=== PATIENT | female | born 1945 | race Caucasian/White ===

== ENCOUNTER 2017-01-06 01:43 | Emergency (ER) | payer MEDICARE, OTHER ==
--- NOTE | ~2017-01-06 | EKG ---
PATIENT: JOSE BROWN UNIT #: [id number] Ventricular Rate: 67 BPM Atrial Rate: 67 BPM P-R Interval: 182 ms QRS Duration: 86 ms Q-T Interval: 420 ms QTC Calculation(Bezet): 443 ms P [place]: 33 degrees Calculated R [place]: -20 degrees Calculated T [place]: 31 degrees Diagnosis Line: Normal sinus rhythm Diagnosis Line: Normal ECG Diagnosis Line: When compared with ECG of 27-JUL-2011 03:24, Diagnosis Line: No significant change was found Diagnosis Line: Confirmed by ASHLEY MEDINA MD ([id number]) on Diagnosis Line: 01/06/2017 3:24:44 PM INTERPRETING MD: CAROL ALEMAN
[~2017-01-06 01:43] MED LIST: ASPIRIN PO; CRESTOR PO; FENOGLIDE120 MG PO; LEVAQUIN250 MG PO; PREMARIN PO; PRILOSEC PO; PRILOSEC20 MG PO; TRICOR PO; TRICOR145 MG PO; ZANTAC PO
[2017-01-06 02:19] LABS: URINE SOURCE CLEAN CATCH
[2017-01-06 02:21] LABS: MICRO INDICATED? NO; URINE APPEARANCE CLEAR; URINE BILIRUBIN NEG (NEG); URINE BLOOD NEG (NEG); URINE COLOR YELLOW; URINE GLUCOSE NEG (NORM); URINE KETONE NEG (NEG); URINE LEUKOCYTE ESTERASE NEG (NEG); URINE NITRATE NEG (NEG); URINE PH 5.5 (5-8); URINE PROTEIN NEG (NEG); URINE UROBILINOGEN 0.2 MG/DL (NORM)
[2017-01-06 02:23] LABS: BASOPHIL# 0.1 X10e3 (0-0.3); BASOPHIL% 1.2 % (0-2.5); EOSINOPHIL# 0.3 X10e3 (0-0.7); EOSINOPHIL% 5.7 % (0.0-7.0); HEMATOCRIT 37.2 % (35.0-45.0); HEMOGLOBIN 12.4 gm/dL (12.0-16.0); LYMPHOCYTE# 3.1 X10e3 (1.0-3.5); LYMPHOCYTE% 53.8 % (17.0-45.0); MEAN CELL VOLUME 87.7 FL (83-96); MEAN CORPUSCULAR HEMOGLOBIN 29.4 PG (28-34); MEAN CORPUSCULAR HGB CONC 33.5 g/dL (30-36); MEAN PLATELET VOLUME 8.6 FL (6.5-11.5); MONOCYTE# 0.4 X10e3 (0-1.0); MONOCYTE% 7.8 % (3.0-12.0); NEUTROPHIL# 1.8 X10e3 (1.5-7.1); NEUTROPHIL% 31.5 % (40-75); PLATELET COUNT 231 X10e3 (140-420); RED BLOOD COUNT 4.24 X10e (3.90-5.30); WHITE BLOOD COUNT 5.7 X10e3 (4.0-10.5)
[2017-01-06 02:24] LABS: DIFF IND NO
[2017-01-06 02:32] LABS: BUN/CREATININE RATIO 24.44; CALCIUM SERUM 9.5 mg/dL (8.4-10.2); CREATININE SERUM 0.9 mg/dL (0.6-1.4); GLOM FILT RATE Estimated 64.8 mL/min (>60); POTASSIUM 4.3 mmol/L (3.5-5.1)
[2017-01-06 02:35] LABS: POC - CKMB <1.0 ng/mL (0.0-7.9); POC - TROPONIN <0.05 ng/mL (<=0.05)
== END 2017-01-06 02:59 | disposition home or self-care (01) ==
LOC: SED 01:43
PROVIDERS: Emergency Medicine
DX: F41.9 Anxiety disorder, unspecified (principal); R03.0 Elevated blood-pressure reading, without diagnosis of hypertension; E78.5 Hyperlipidemia, unspecified; K21.9 Gastro-esophageal reflux disease without esophagitis; Z79.899 Other long term (current) drug therapy
CPT/HCPCS: 36415; 80048; 81003; 82553; 84484; 85025; 93005; 99283